=== PATIENT | male | born 1960 | race Caucasian/White ===

== ENCOUNTER 2020-11-24 05:45 | Day surgery (SDC) | payer BC ==
[~2020-11-24] VITALS: Ht 177.8 cm; Wt 91.0 kg
[2020-11-24] MEDS ORDERED: VOLTAREN ARTHRI20 GM TP (06:04)
[2020-11-24] MEDS ORDERED: HYDROCODON-ACE1 EA11 PO (08:14)
--- NOTE | 2020-11-24 08:21 | NUR ---
11/24/20 0821 Yolande Tarango 0805 PT ARRIVES TO PACU SLEEPING ORAL AIR WAY IN PLACE. PT NOT REACTIVE TO STIMULI. CRIO CUFF PLACED ON LT SHOULDER.
--- NOTE | 2020-11-24 08:47 | NUR ---
[facility]IENT BACK TO [facility] [employer] [facility]. DRESSING TO LEFT SHOULDER C/D/I WITH CRY ICE THERAPY IN PLACE. PATIENT AWAKE,REPORTS PAIN 0/10 ON PAIN SCALE. NERVE BLOCK APPEARS EFFECTIVE. AT BEDSIDE. PROVIDED SNACKS AND WATER. VSS. CMS INTACT. STRONG RADIAL AND ULNAR PULSE.
--- NOTE | 2020-11-24 10:50 | NUR ---
STATES PT NAUSEATED THEN PT STATES JUST EMPTY STOMACH I THINK. PER REQUEST GIVEN PUDDING AND SPRITE.
--- NOTE | 2020-11-24 11:24 | NUR ---
1100 IS USING CRYOCUFF FROM LAST SURGERY. STATES THEY KNOW HOW TO USE. HAS AMB TO BR AND VOIDS QS. IS DRESSED AND READY TO GO HOME.
--- NOTE | 2020-12-08 10:43 | OR ---
[facility] [address] [place], [place] [address] Signed DATE OF OPERATION: 11/24/2020 SURGEON: Jesu Tarango MD PREOPERATIVE DIAGNOSIS: Calcific tendinitis, left shoulder, partial rotator cuff tear. POSTOPERATIVE DIAGNOSIS: Calcific tendinitis, left shoulder, partial rotator cuff tear. PROCEDURE PERFORMED: Left shoulder arthroscopy with limited debridement. 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 ANESTHESIA: General. BLOOD LOSS: Minimal. BRIEF HISTORY: Rogelio is a 60-year-old gentleman with pain in his shoulder. He had nonoperative treatment without substantial relief. Risks and benefits of operative treatment were discussed with him and he elected to proceed. DESCRIPTION OF PROCEDURE: Once consent was obtained, he was taken to the operating room. After adequate anesthesia, he was placed in the beach chair position. All downside pressure points were well padded. The left shoulder was prepped and draped in a standard sterile fashion. The shoulder was injected with 15 mL of 0.25% Marcaine with epinephrine as was subacromial space. Standard posterior portal was made and the scope was introduced in the shoulder. ARTHROSCOPIC FINDINGS: The glenohumeral surfaces were intact. Biceps, biceps anchor and labrum were intact. Undersurface of the rotator cuff showed no scuffing or indications of rotator cuff tear. The subscapularis was intact. The biceps was located. The subacromial space showed marked thickening and fibrosis of the bursa with induration and erythema. Electronically Signed By: JESU TARANGO MD 11/27/20 0811 Electronically Signed By: JESU TARANGO MD 12/11/20 0820 PATIENT NAME: ROGELIO CHEN OPERATIVE REPORT DATE OF : 56 REPORT #: [id number] PHYSICIAN: JESU TARANGO MD PCP: NO PRIMARY CARE PHYSICIAN REPORT IS CONFIDENTIAL AND NOT TO BE RELEASED WITHOUT AUTHORIZATION [facility] [address] [place], [place] [address] Signed There were several areas of calcium that were debrided. The undersurface of the acromion was type 1. Diagnostic arthroscopy was undertaken as noted above. The scope was then withdrawn from the shoulder, placed in subacromial space. A standard lateral portal was made. Using a combination of Mitek VAPR and the shaver, the bursa was removed down to the rotator cuff. Those several areas of calcium deposits were uncovered and debrided. They were fairly punctate and scattered. The resulting partial rotator cuff tear was fairly minimal. They were actually fairly superficial. The debris was all evacuated and the scope was withdrawn. Portals were closed with 3-0 nylon. The subacromial space was injected with 60 mg of Toradol. The wounds were dressed with Allevyn and OpSite. He tolerated the procedure well. All sponge, needle, and instrument counts were correct. Jesu Tarango MD BA/ROBERTO /[id number] Copies: ~ Electronically Signed By: JESU TARANGO MD 11/27/20 0811 Electronically Signed By: JESU TARANGO MD 12/11/20 0820 PATIENT NAME: CHENROGELIO OPERATIVE REPORT DATE OF : 56 REPORT #: [id number] PHYSICIAN: JESU TARANGO MD PCP: NO PRIMARY CARE PHYSICIAN REPORT IS CONFIDENTIAL AND NOT TO BE RELEASED WITHOUT AUTHORIZATION
== END 2020-11-24 11:10 | disposition home or self-care (01) ==
LOC: DS 05:45
PROVIDERS: ATTEND Specialist
PROC: 0RBK4ZZ Excision of Left Shoulder Joint, Percutaneous Endoscopic Approach (ICD-10-PCS; principal; 2020-11-24 06:45)
DX: M75.32 Calcific tendinitis of left shoulder (principal); M75.112 Incomplete rotator cuff tear or rupture of left shoulder, not specified as traumatic; G89.18 Other acute postprocedural pain; J45.909 Unspecified asthma, uncomplicated; G47.30 Sleep apnea, unspecified; Z88.6 Allergy status to analgesic agent; Z88.7 Allergy status to serum and vaccine
CPT/HCPCS: 00450; 64415; 76942; J0690; J1100; J1885; J2001; J2250; J2405; J2704; J2795; J3010; J7121

== ENCOUNTER 2020-11-27 03:09 | Emergency (ER) | payer BC ==
[~2020-11-27] VITALS: Ht 177.8 cm; Wt 90.7 kg
[~2020-11-27 03:09] MED LIST: HYDROCODON-ACE1 EA11 PO; VOLTAREN ARTHRI20 GM TP
[2020-11-27] MEDS ORDERED: REGLAN10 MG PO (05:02)
== END 2020-11-27 05:30 | disposition home or self-care (01) ==
LOC: ED 03:09
DX: R11.2 Nausea with vomiting, unspecified (principal); Z88.7 Allergy status to serum and vaccine; Z88.6 Allergy status to analgesic agent; Z88.8 Allergy status to other drugs, medicaments and biological substances
CPT/HCPCS: 80053; 83690; 85025; 96374; 96375; 99284-25; J2405; J2765; J7030

== ENCOUNTER 2024-12-30 08:46 | Emergency (ER) | payer MEDICARE, BC ==
[~2024-12-30] VITALS: Ht 177.8 cm; Wt 93.0 kg
[~2024-12-30 08:46] MED LIST changes: +REGLAN10 MG PO
[2024-12-30] MEDS ORDERED: SODIUM CHLORIDE 0.9% 1,000 ML IV ONE (09:30)
[2024-12-30] MEDS ORDERED: HYDROmorphone HCL 1 MG/ML SYR IV PRN (09:30)
[2024-12-30 09:37] LABS: BASOPHILS 0.3 % (0.2-1.2); EOSINOPHILS 1.4 % (0.8-7.0); LYMPHOCYTES 21.6 % (21.8-53.1); MCH 29.3 PG (25.7-32.2); MCHC 33.7 g/dL (32.3-36.5); MCV 86.9 fL (79.0-92.2); MONOCYTES 4.8 % (5.3-12.2); NEUTROPHILS 71.8 % (34.0-67.9); RBC 5.19 M/uL (4.63-6.08)
[2024-12-30 09:53] LABS: ALT (SGPT) 55.0 U/L (14-59); AST (SGOT) 33.0 U/L (15-37); GLOMERULAR FILTRATION RATE,EST 82.0 mL/min (>60); PROTEIN, TOTAL 7.8 g/dL (6.4-8.2); UREA NITROGEN 14.0 mg/dL (7-18)
[2024-12-30] MEDS ORDERED: TAMSULOSIN HCL 0.4 MG CAP PO ONE (10:00)
[2024-12-30] MEDS ORDERED: HYDROmorphone HCL 1 MG/ML SYR IV ONE (10:45)
[2024-12-30] MEDS ORDERED: SODIUM CHLORIDE 0.9% 1,000 ML IV PRN (12:00)
[2024-12-30 14:08] LABS: BLOOD/HGB, URINE LARGE (Negative); KETONE, URINE NEGATIVE (Negative); LEUK ESTERASE, URINE NEGATIVE (negative); NITRITE, URINE NEGATIVE (negative)
[2024-12-30 14:16] LABS: BACTERIA, URINE NONE SEEN /hpf (negative); CASTS, URINE NONE SEEN \\lpf; CRYSTALS, URINE NONE SEEN (0-1+); EPITHELIAL CELLS, URINE SQUAMOUS 1+ /lpf (0-1+)
[2024-12-30 14:17] LABS: REFLEX CULTURE, URINE No (No)
[2024-12-30] MEDS ORDERED: ONDANSETRON ODT4 MG PO (16:07)
[2024-12-30] MEDS ORDERED: FLOMAX0.4 MG PO (16:07)
[2024-12-30] MEDS ORDERED: MORPHINE SULFAT15 MG PO (16:07)
[2024-12-30 16:20] VITALS: BP 150/78
== END 2024-12-30 16:22 | disposition home or self-care (01) ==
LOC: ED 08:46
PROVIDERS: Emergency Medicine
DX: N13.2 Hydronephrosis with renal and ureteral calculous obstruction (principal); Z88.7 Allergy status to serum and vaccine; Z88.8 Allergy status to other drugs, medicaments and biological substances
CPT/HCPCS: 36415; 74176; 80053; 81001; 85025; 96361; 96374; 96375; 96376; 99284-25; J1171; J1200; J1790; J2405; J7030